=== PATIENT | female | born 1945 | race Caucasian/White ===

== ENCOUNTER 2021-02-14 16:04 | Inpatient (IN) ==
[2021-02-14] MEDS ORDERED: Metoprolol Tartrate 5 mg VIAL 5 ml VIAL (1 mg/ml) IV ONE ×2 (16:46→18:09)
[2021-02-14] MEDS ORDERED: Magnesium Sulfate IV 1GM/100ML 1 GM/100 ML BAG IV ONE (16:47)
[2021-02-14 17:57] LABS: ABS Lymphocytes 0.3 10^3/ul (1.0-4.8); ABS Monocytes 0.9 10^3/ul (0-0.8); ABS Neutrophils 15.3 10^3/ul (1.5-7.7); ABS Nucleated RBC 0.1 10^3/ul; Hematocrit 44 % (35-47); Hemoglobin 13.8 g/dL (12.0-16.0); Lymphocyte % 1.9 %; Mean Corpuscular HGB Conc 31 g/dL (31-36); Mean Corpuscular Hemoglobin 30 pg (27-31); Mean Corpuscular Volume 95 fL (80-97); Mean Platelet Volume 7.9 fL (7.4-10.4); Nucleated Red Blood Cells % 0.8; Platelet Count 308 10^3/uL (150-450); Red Cell Distribution Width 23 % (10-15); White Blood Count 16.5 10^3/uL (3.5-10.8)
[2021-02-14 18:15] LABS: ALT 15 U/L (7-52); AST 22 U/L (13-39); Alkaline Phosphatase 166 U/L (35-149); Blood Urea Nitrogen 61 mg/dL (6-24); CO2 Carbon Dioxide 31 mmol/L (22-32); Calcium 9.2 mg/dL (8.6-10.3); Globulin 2.9 g/dL (2-4); Glucose 105 mg/dL (70-100); Magnesium 2.6 mg/dL (1.9-2.7); Potassium 3.1 mmol/L (3.5-5.0); Total Protein 5.9 g/dL (6.4-8.9); eGFR CKD-EPI 30.8 (>60)
[2021-02-14 18:18] LABS: Chloride 117 mmol/L (101-111)
[2021-02-14 18:19] LABS: Troponin I 0.07 ng/mL (<0.03)
[2021-02-14 18:20] LABS: Anion Gap 10 mmol/L (2-11); Sodium 158 mmol/L (135-145)
[2021-02-14] MEDS: KCL 10 MEQ/50 ML IVPREMIX 10 MEQ/50 ML BAG IV SCH ×4 (18:56→22:59)
[2021-02-14] MEDS ORDERED: D5W 1/2 NS 1000 ml BAG 1,000 ML IV SCH ×2 (20:00)
[2021-02-14] MEDS: Magnesium Hydroxide LIQ 30 ML UDC PO SCH (21:32)
[2021-02-14] MEDS ORDERED: Piperacillin/Tazobac ADVAN 3.375 GM in NS 0.9% 100 ml BAG 100 ML IV ONE (21:35)
[2021-02-14] MEDS ORDERED: Dextrose 50% Syringe 50 ml 25 GM/50 ML SYRINGE IV PUSH PRN (21:50)
[2021-02-14 21:52] LABS: Troponin I 0.07 ng/mL (<0.03)
[2021-02-14] MEDS ORDERED: Zosyn per Pharmacy NOTE FOLLOW UP SCH (22:00)
[2021-02-14 22:08] LABS: C Reactive Protein 105.33 mg/L (<8.01)
[2021-02-15 01:19] LABS: Hepatitis B Surface Antigen Nonreactive (Nonreactive)
[2021-02-15 01:24] LABS: Hepatitis A Ab IgM Negative (Negative)
[2021-02-15 01:25] LABS: Hepatitis B Core IgM Nonreactive (Nonreactive)
[2021-02-15 01:36] LABS: Hepatitis C Antibody Negative (Negative)
[2021-02-15] MEDS: Collagenase 250 units/gm OINT 1 tube TOPICAL SCH ×2 (02:15→08:58)
[2021-02-15] MEDS: Metoprolol Tartrate 5 mg VIAL 5 ml VIAL (1 mg/ml) IV PRN ×2 (02:59→11:32)
[2021-02-15 06:20] LABS: Sodium 159 mmol/L (135-145)
[2021-02-15 06:42] LABS: Hematocrit 48 % (35-47); Hemoglobin 14.6 g/dL (12.0-16.0); Mean Corpuscular HGB Conc 30 g/dL (31-36); Mean Corpuscular Hemoglobin 30 pg (27-31); Mean Corpuscular Volume 100 fL (80-97); Mean Platelet Volume 8.1 fL (7.4-10.4); Platelet Count 313 10^3/uL (150-450); Red Blood Count 4.86 10^6 /uL (3.70-4.87); Red Cell Distribution Width 24 % (10-15); White Blood Count 16.2 10^3/uL (3.5-10.8)
[2021-02-15 06:52] LABS: Calcium 9.2 mg/dL (8.6-10.3); Potassium 3.6 mmol/L (3.5-5.0); eGFR CKD-EPI 30.2 (>60)
[2021-02-15 06:57] LABS: Blood Urea Nitrogen 60 mg/dL (6-24); CO2 Carbon Dioxide 28 mmol/L (22-32); Calcium 9.2 mg/dL (8.6-10.3); Glucose 99 mg/dL (70-100); Magnesium 3.3 mg/dL (1.9-2.7); Potassium 3.7 mmol/L (3.5-5.0); eGFR CKD-EPI 30.4 (>60)
[2021-02-15 07:03] LABS: Troponin I 0.07 ng/mL (<0.03)
[2021-02-15 07:14] LABS: Anion Gap 12 mmol/L (2-11); Chloride 119 mmol/L (101-111); Sodium 159 mmol/L (135-145)
[2021-02-15] MEDS ORDERED: D5W 1/2 NS 1000 ml BAG 1,000 ML IV SCH ×2 (08:00→21:45)
[2021-02-15] MEDS: Magnesium Hydroxide LIQ 30 ML UDC PO SCH ×2 (08:58→22:56)
[2021-02-15] MEDS ORDERED: Collagenase 250 units/gm OINT 1 tube TOPICAL SCH (09:00)
[2021-02-15] MEDS ORDERED: Perflutren Lipid Microsphere 3 ML VIAL ONE (11:21)
[2021-02-15] MEDS ORDERED: Buffered Lidocaine 1% SYRIN 1 ml INTRADERM ONE (13:17)
[2021-02-15] MEDS ORDERED: Vancomycin per Pharmacy 1 EA NOTE FOLLOW UP PRN (13:20)
[2021-02-15] MEDS ORDERED: Vancomycin 1,250 MG in NS 0.9% 250 ml 250 ML IVPB ONE (14:00)
[2021-02-15] MEDS ORDERED: Ketamine HCL 50 mg/ml 10 ml VIAL (500 MG) ONE (17:54)
[2021-02-15] MEDS ORDERED: Propofol 10 MG/ML 20 ML BTL ONE (17:54)
[2021-02-15 20:54] LABS: Calcium 8.9 mg/dL (8.6-10.3); Potassium 3.7 mmol/L (3.5-5.0); eGFR CKD-EPI 31.7 (>60)
[2021-02-15] MEDS ORDERED: Potassium Chlor 20 meq TAB.ER PO ONE (22:34)
[2021-02-16 05:36] LABS: Urine Appearance Clear; Urine Color Yellow; Urine Specific Gravity 1.013 (1.002-1.030)
[2021-02-16 05:37] LABS: * N (Negative); Urine Bilirubin Negative (Negative); Urine Blood 2+ (Negative); Urine Glucose 3+(>=500 mg/dL) (Negative); Urine Ketones Negative (Negative); Urine Nitrite N (Negative); Urine Protein N (Negative); Urine Urobilinogen N (Negative)
[2021-02-16 05:48] LABS: Calcium 7.9 mg/dL (8.6-10.3); Magnesium 2.9 mg/dL (1.9-2.7); Potassium 3.4 mmol/L (3.5-5.0)
[2021-02-16 05:49] LABS: ABS Lymphocytes 0.4 10^3/ul (1.0-4.8); ABS Monocytes 0.7 10^3/ul (0-0.8); ABS Neutrophils 14.3 10^3/ul (1.5-7.7); Eosinophil % 0.1 %; Hematocrit 41 % (35-47); Hemoglobin 12.4 g/dL (12.0-16.0); Lymphocyte % 2.7 %; Mean Corpuscular HGB Conc 30 g/dL (31-36); Mean Corpuscular Hemoglobin 30 pg (27-31); Mean Corpuscular Volume 100 fL (80-97); Mean Platelet Volume 8.4 fL (7.4-10.4); Nucleated Red Blood Cells % 0.2; Platelet Count 243 10^3/uL (150-450); Red Blood Count 4.09 10^6 /uL (3.70-4.87); Red Cell Distribution Width 24 % (10-15); White Blood Count 15.4 10^3/uL (3.5-10.8)
[2021-02-16 05:54] LABS: C Reactive Protein 137.29 mg/L (<8.01); eGFR CKD-EPI 37.2 (>60)
[2021-02-16 06:05] LABS: Urine Bacteria Absent (Absent); Urine Red Blood Cell Trace(0-2/hpf) (Absent); Urine Squamous Epithelial Cell Present (Absent); Urine White Blood Cell Trace(0-5/hpf) (Absent)
[2021-02-16] MEDS ORDERED: Vancomycin Random Level NOTE FOLLOW UP ONE (08:00)
[2021-02-16] MEDS ORDERED: Potassium Chlor 20 meq TAB.ER PO ONE (08:00)
[2021-02-16] MEDS: D5W 1000 ml BAG 1,000 ML IV SCH ×2 (08:35→21:13)
[2021-02-16] MEDS: Magnesium Hydroxide LIQ 30 ML UDC PO SCH ×2 (08:42→21:00)
[2021-02-16 09:23] LABS: Calcium 8.7 mg/dL (8.6-10.3); Potassium 3.6 mmol/L (3.5-5.0); eGFR CKD-EPI 36.6 (>60)
[2021-02-16] MEDS: Vancomycin 1000 MG in NS 0.9% 250 ML IVPB SCH ×2 (11:40→23:31)
[2021-02-16] MEDS: Collagenase 250 units/gm OINT 1 tube TOPICAL SCH (12:35)
[2021-02-16 14:09] LABS: Calcium 8.6 mg/dL (8.6-10.3); eGFR CKD-EPI 37.2 (>60)
[2021-02-16] MEDS ORDERED: Lorazepam PYXIS KEY PRN (16:14)
[2021-02-16] MEDS ORDERED: LORazepam 2 mg VIAL 1 ml IV PUSH ONE (16:14)
[2021-02-16 18:00] LABS: Osmolality Serum 338 mOsm/kg (275-295)
[2021-02-16 18:29] LABS: Calcium 8.2 mg/dL (8.6-10.3); Potassium 4.2 mmol/L (3.5-5.0); eGFR CKD-EPI 36.6 (>60)
[2021-02-16 18:38] LABS: Complement C3 100 mg/dL (75 - 175)
[2021-02-16 22:16] LABS: Calcium 8.2 mg/dL (8.6-10.3); Potassium 4.1 mmol/L (3.5-5.0); eGFR CKD-EPI 37.5 (>60)
[2021-02-17 01:12] LABS: Blood Urea Nitrogen 41 mg/dL (6-24); CO2 Carbon Dioxide 30 mmol/L (22-32); Glucose 67 mg/dL (70-100); Potassium 3.9 mmol/L (3.5-5.0); eGFR CKD-EPI 39.1 (>60)
[2021-02-17 01:16] LABS: Anion Gap 4 mmol/L (2-11); Chloride 119 mmol/L (101-111); Sodium 153 mmol/L (135-145)
[2021-02-17 05:08] LABS: Calcium 7.9 mg/dL (8.6-10.3); Potassium 3.7 mmol/L (3.5-5.0); eGFR CKD-EPI 38.2 (>60)
[2021-02-17] MEDS: Magnesium Hydroxide LIQ 30 ML UDC PO SCH ×2 (08:42→20:46)
[2021-02-17] MEDS ORDERED: Buffered Lidocaine 1% SYRIN 1 ml INTRADERM ONE (11:15)
[2021-02-17] MEDS: Collagenase 250 units/gm OINT 1 tube TOPICAL SCH (12:15)
[2021-02-17 13:15] LABS: Cryoglobulin Negative %ppt (Negative)
[2021-02-17] MEDS: Vancomycin 1000 MG in NS 0.9% 250 ML IVPB SCH ×2 (14:45→22:39)
[2021-02-18 06:12] LABS: ABS Eosinophils 0.1 10^3/ul (0-0.6); ABS Lymphocytes 0.5 10^3/ul (1.0-4.8); ABS Monocytes 0.5 10^3/ul (0-0.8); ABS Neutrophils 5.4 10^3/ul (1.5-7.7); Eosinophil % 0.9 %; Hematocrit 36 % (35-47); Lymphocyte % 7.2 %; Mean Corpuscular HGB Conc 31 g/dL (31-36); Mean Corpuscular Hemoglobin 30 pg (27-31); Mean Corpuscular Volume 97 fL (80-97); Mean Platelet Volume 8.9 fL (7.4-10.4); Nucleated Red Blood Cells % 0.3; Platelet Count 235 10^3/uL (150-450); Red Blood Count 3.66 10^6 /uL (3.70-4.87); Red Cell Distribution Width 22 % (10-15); White Blood Count 6.4 10^3/uL (3.5-10.8)
[2021-02-18 06:31] LABS: C Reactive Protein 90.05 mg/L (<8.01); Calcium 7.9 mg/dL (8.6-10.3); Potassium 3.9 mmol/L (3.5-5.0); eGFR CKD-EPI 34.9 (>60)
[2021-02-18] MEDS: Magnesium Hydroxide LIQ 30 ML UDC PO SCH ×2 (08:56→20:58)
[2021-02-18] MEDS: Collagenase 250 units/gm OINT 1 tube TOPICAL SCH (08:57)
[2021-02-18] MEDS ORDERED: Vancomycin Trough Check NOTE FOLLOW UP ONE (10:30)
[2021-02-18] MEDS: Vancomycin 1000 MG in NS 0.9% 250 ML IVPB SCH (12:29)
[2021-02-18] MEDS: D5W 1000 ml BAG 1,000 ML IV SCH (20:57)
[2021-02-18] MEDS: Vancomycin 1,250 MG in NS 0.9% 250 ml 250 ML IVPB SCH (22:04)
[2021-02-19] MEDS: D5W 1000 ml BAG 1,000 ML IV SCH (05:08)
[2021-02-19 05:58] LABS: ABS Eosinophils 0.1 10^3/ul (0-0.6); ABS Lymphocytes 0.5 10^3/ul (1.0-4.8); ABS Monocytes 0.5 10^3/ul (0-0.8); ABS Neutrophils 5.5 10^3/ul (1.5-7.7); Eosinophil % 1.2 %; Hematocrit 35 % (35-47); Hemoglobin 10.8 g/dL (12.0-16.0); Lymphocyte % 7.6 %; Mean Corpuscular HGB Conc 31 g/dL (31-36); Mean Corpuscular Hemoglobin 30 pg (27-31); Mean Corpuscular Volume 96 fL (80-97); Mean Platelet Volume 8.9 fL (7.4-10.4); Nucleated Red Blood Cells % 0.2; Platelet Count 254 10^3/uL (150-450); Red Blood Count 3.67 10^6 /uL (3.70-4.87); Red Cell Distribution Width 22 % (10-15); White Blood Count 6.6 10^3/uL (3.5-10.8)
[2021-02-19 06:19] LABS: Albumin 2.4 g/dL (3.2-5.2); Calcium 7.6 mg/dL (8.6-10.3); Globulin 2.5 g/dL (2-4); Potassium 3.9 mmol/L (3.5-5.0); Total Bilirubin 0.7 mg/dL (0.2-1.0); Total Protein 4.9 g/dL (6.4-8.9); eGFR CKD-EPI 28.3 (>60)
[2021-02-19] MEDS ORDERED: Morphine 2 MG/ML SYRINGE IV PRN (06:32)
[2021-02-19] MEDS: Collagenase 250 units/gm OINT 1 tube TOPICAL SCH (09:07)
[2021-02-19] MEDS: Magnesium Hydroxide LIQ 30 ML UDC PO SCH ×2 (09:07→20:36)
[2021-02-19] MEDS ORDERED: NS 0.9% 1000 ml BAG 500 ML IV ONE (19:45)
[2021-02-19] MEDS: Vancomycin 1,250 MG in NS 0.9% 250 ml 250 ML IVPB SCH (21:57)
[2021-02-20 07:19] LABS: ABS Lymphocytes 0.6 10^3/ul (1.0-4.8); ABS Monocytes 0.6 10^3/ul (0-0.8); ABS Neutrophils 5.4 10^3/ul (1.5-7.7); Eosinophil % 0.7 %; Hematocrit 36 % (35-47); Hemoglobin 11.4 g/dL (12.0-16.0); Lymphocyte % 9.3 %; Mean Corpuscular HGB Conc 31 g/dL (31-36); Mean Corpuscular Hemoglobin 30 pg (27-31); Mean Corpuscular Volume 96 fL (80-97); Mean Platelet Volume 8.8 fL (7.4-10.4); Platelet Count 249 10^3/uL (150-450); Red Blood Count 3.77 10^6 /uL (3.70-4.87); Red Cell Distribution Width 21 % (10-15); White Blood Count 6.6 10^3/uL (3.5-10.8)
[2021-02-20 07:36] LABS: Calcium 7.6 mg/dL (8.6-10.3); Potassium 4.8 mmol/L (3.5-5.0); eGFR CKD-EPI 24.1 (>60)
[2021-02-20] MEDS: Collagenase 250 units/gm OINT 1 tube TOPICAL SCH (07:58)
[2021-02-20] MEDS: Magnesium Hydroxide LIQ 30 ML UDC PO SCH ×3 (08:00→20:47)
[2021-02-20] MEDS ORDERED: NS 0.9% 500 ml BAG 500 ML IV ONE (08:53)
[2021-02-20] MEDS: Calcium Carb (TUMS) 500 mg CHEW TAB PO PRN (20:45)
[2021-02-21] MEDS: Calcium Carb (TUMS) 500 mg CHEW TAB PO PRN ×2 (04:53→20:52)
[2021-02-21 05:58] LABS: ABS Lymphocytes 0.7 10^3/ul (1.0-4.8); ABS Monocytes 0.5 10^3/ul (0-0.8); ABS Neutrophils 5.6 10^3/ul (1.5-7.7); Eosinophil % 0.3 %; Hematocrit 36 % (35-47); Hemoglobin 11.1 g/dL (12.0-16.0); Lymphocyte % 10.7 %; Mean Corpuscular HGB Conc 31 g/dL (31-36); Mean Corpuscular Hemoglobin 30 pg (27-31); Mean Corpuscular Volume 96 fL (80-97); Mean Platelet Volume 9.4 fL (7.4-10.4); Nucleated Red Blood Cells % 0.4; Platelet Count 263 10^3/uL (150-450); Red Blood Count 3.71 10^6 /uL (3.70-4.87); Red Cell Distribution Width 22 % (10-15)
[2021-02-21] MEDS ORDERED: Vancomycin Trough Check NOTE FOLLOW UP ONE (06:00)
[2021-02-21] MEDS ORDERED: Vancomycin Random Level NOTE FOLLOW UP ONE (06:00)
[2021-02-21 06:03] LABS: Calcium 7.8 mg/dL (8.6-10.3); Potassium 4.9 mmol/L (3.5-5.0)
[2021-02-21 06:08] LABS: Vancomycin Random 32.7 mcg/mL
[2021-02-21 07:55] LABS: Magnesium 2.6 mg/dL (1.9-2.7)
[2021-02-21] MEDS: Magnesium Hydroxide LIQ 30 ML UDC PO SCH ×2 (09:14→20:53)
[2021-02-21] MEDS: Collagenase 250 units/gm OINT 1 tube TOPICAL SCH (09:14)
[2021-02-22 05:25] LABS: ABS Basophils 0.1 10^3/ul (0-0.2); ABS Lymphocytes 0.8 10^3/ul (1.0-4.8); ABS Monocytes 0.6 10^3/ul (0-0.8); ABS Neutrophils 4.6 10^3/ul (1.5-7.7); ABS Nucleated RBC 0.1 10^3/ul; Eosinophil % 0.5 %; Hematocrit 34 % (35-47); Hemoglobin 10.7 g/dL (12.0-16.0); Lymphocyte % 13.4 %; Mean Corpuscular HGB Conc 31 g/dL (31-36); Mean Corpuscular Hemoglobin 30 pg (27-31); Mean Corpuscular Volume 96 fL (80-97); Platelet Count 271 10^3/uL (150-450); Red Blood Count 3.55 10^6 /uL (3.70-4.87); Red Cell Distribution Width 21 % (10-15); White Blood Count 6.2 10^3/uL (3.5-10.8)
[2021-02-22 05:41] LABS: Albumin 2.5 g/dL (3.2-5.2); Calcium 7.9 mg/dL (8.6-10.3); Globulin 2.5 g/dL (2-4); Total Bilirubin 0.8 mg/dL (0.2-1.0); eGFR CKD-EPI 19.7 (>60)
[2021-02-22 05:49] LABS: Vancomycin Random 28.1 mcg/mL
[2021-02-22] MEDS ORDERED: Vancomycin Random Level NOTE FOLLOW UP ONE (06:00)
[2021-02-22] MEDS ORDERED: Saline NASAL DROPS 0.65% BTL BOTH NARES PRN (08:33)
[2021-02-22] MEDS: Magnesium Hydroxide LIQ 30 ML UDC PO SCH ×2 (10:53→23:03)
[2021-02-22] MEDS: Collagenase 250 units/gm OINT 1 tube TOPICAL SCH (10:55)
[2021-02-22 12:02] LABS: Urine Creatinine Concentration 108.81 mg/dL; Urine Sodium Concentration < 18 mmol/L
[2021-02-22] MEDS ORDERED: Bumetanide IV 0.25 MG/ML 4 ml VIAL (1 mg) SLOW PUSH ONE (13:49)
[2021-02-22] MEDS: Bumetanide IV 0.25 MG/ML 4 ml VIAL (1 mg) SLOW PUSH SCH (22:58)
[2021-02-23 05:08] LABS: ABS Basophils 0.1 10^3/ul (0-0.2); ABS Eosinophils 0.1 10^3/ul (0-0.6); ABS Lymphocytes 0.6 10^3/ul (1.0-4.8); ABS Monocytes 0.6 10^3/ul (0-0.8); ABS Neutrophils 5.2 10^3/ul (1.5-7.7); ABS Nucleated RBC 0.1 10^3/ul; Eosinophil % 0.8 %; Hematocrit 32 % (35-47); Hemoglobin 10.2 g/dL (12.0-16.0); Lymphocyte % 9.7 %; Mean Corpuscular HGB Conc 32 g/dL (31-36); Mean Corpuscular Hemoglobin 30 pg (27-31); Mean Corpuscular Volume 95 fL (80-97); Mean Platelet Volume 8.7 fL (7.4-10.4); Nucleated Red Blood Cells % 1.3; Platelet Count 274 10^3/uL (150-450); Red Blood Count 3.41 10^6 /uL (3.70-4.87); Red Cell Distribution Width 21 % (10-15); White Blood Count 6.6 10^3/uL (3.5-10.8)
[2021-02-23 05:30] LABS: Magnesium 2.4 mg/dL (1.9-2.7); Potassium 4.3 mmol/L (3.5-5.0)
[2021-02-23] MEDS ORDERED: Vancomycin Random Level NOTE FOLLOW UP ONE (06:00)
[2021-02-23] MEDS: Magnesium Hydroxide LIQ 30 ML UDC PO SCH ×3 (10:13→22:55)
[2021-02-23] MEDS: Collagenase 250 units/gm OINT 1 tube TOPICAL SCH (10:14)
[2021-02-23] MEDS: Bumetanide IV 0.25 MG/ML 4 ml VIAL (1 mg) SLOW PUSH SCH (10:14)
[2021-02-23 18:35] LABS: Rapid COVID-19 Molecular Undetected (Undetected)
[2021-02-24 05:28] LABS: ABS Basophils 0.1 10^3/ul (0-0.2); ABS Eosinophils 0.1 10^3/ul (0-0.6); ABS Lymphocytes 0.5 10^3/ul (1.0-4.8); ABS Monocytes 0.6 10^3/ul (0-0.8); Hematocrit 33 % (35-47); Hemoglobin 10.5 g/dL (12.0-16.0); Lymphocyte % 8.6 %; Mean Corpuscular HGB Conc 32 g/dL (31-36); Mean Corpuscular Hemoglobin 30 pg (27-31); Mean Corpuscular Volume 95 fL (80-97); Mean Platelet Volume 8.6 fL (7.4-10.4); Nucleated Red Blood Cells % 0.7; Platelet Count 280 10^3/uL (150-450); Red Blood Count 3.49 10^6 /uL (3.70-4.87); Red Cell Distribution Width 22 % (10-15); White Blood Count 6.2 10^3/uL (3.5-10.8)
[2021-02-24 05:47] LABS: Albumin 2.5 g/dL (3.2-5.2); Globulin 2.6 g/dL (2-4); Magnesium 2.1 mg/dL (1.9-2.7); Potassium 4.2 mmol/L (3.5-5.0); Total Bilirubin 0.8 mg/dL (0.2-1.0); Total Protein 5.1 g/dL (6.4-8.9); eGFR CKD-EPI 18.8 (>60)
[2021-02-24] MEDS: Collagenase 250 units/gm OINT 1 tube TOPICAL SCH (09:09)
[2021-02-24] MEDS: Magnesium Hydroxide LIQ 30 ML UDC PO SCH ×2 (09:09→20:59)
[2021-02-25] MEDS: Magnesium Hydroxide LIQ 30 ML UDC PO SCH ×2 (08:22→21:11)
[2021-02-25] MEDS: Collagenase 250 units/gm OINT 1 tube TOPICAL SCH (08:22)
[2021-02-25 16:05] LABS: Calcium 7.9 mg/dL (8.6-10.3); Magnesium 2.2 mg/dL (1.9-2.7); Potassium 4.3 mmol/L (3.5-5.0); eGFR CKD-EPI 18.5 (>60)
[2021-02-26 05:50] LABS: ABS Basophils 0.1 10^3/ul (0-0.2); ABS Eosinophils 0.2 10^3/ul (0-0.6); ABS Lymphocytes 0.6 10^3/ul (1.0-4.8); ABS Monocytes 0.5 10^3/ul (0-0.8); ABS Neutrophils 4.7 10^3/ul (1.5-7.7); Eosinophil % 2.9 %; Hematocrit 32 % (35-47); Hemoglobin 10.2 g/dL (12.0-16.0); Lymphocyte % 10.3 %; Mean Corpuscular HGB Conc 32 g/dL (31-36); Mean Corpuscular Hemoglobin 30 pg (27-31); Mean Corpuscular Volume 95 fL (80-97); Mean Platelet Volume 8.5 fL (7.4-10.4); Nucleated Red Blood Cells % 0.7; Platelet Count 281 10^3/uL (150-450); Red Blood Count 3.41 10^6 /uL (3.70-4.87); Red Cell Distribution Width 21 % (10-15); White Blood Count 6.1 10^3/uL (3.5-10.8)
[2021-02-26 06:05] LABS: Calcium 7.8 mg/dL (8.6-10.3); Magnesium 2.2 mg/dL (1.9-2.7); Potassium 4.4 mmol/L (3.5-5.0); eGFR CKD-EPI 20.5 (>60)
[2021-02-26] MEDS: Magnesium Hydroxide LIQ 30 ML UDC PO SCH ×2 (09:32→21:29)
[2021-02-26] MEDS: Linezolid 600 MG IVPREMIX(*) 600 MG/300 ML BAG IVPB SCH ×2 (09:33→21:29)
[2021-02-26] MEDS: Collagenase 250 units/gm OINT 1 tube TOPICAL SCH (13:00)
[2021-02-27] MEDS ORDERED: Linezolid 600 MG IVPREMIX(*) 600 MG/300 ML BAG IVPB SCH (07:00)
[2021-02-27] MEDS: Linezolid 600 MG IVPREMIX(*) 600 MG/300 ML BAG IVPB SCH ×2 (10:39→17:56)
[2021-02-27] MEDS: Magnesium Hydroxide LIQ 30 ML UDC PO SCH ×3 (11:07→20:16)
[2021-02-27] MEDS: Collagenase 250 units/gm OINT 1 tube TOPICAL SCH (18:16)
[2021-02-28 07:37] LABS: ABS Basophils 0.1 10^3/ul (0-0.2); ABS Eosinophils 0.1 10^3/ul (0-0.6); ABS Lymphocytes 0.7 10^3/ul (1.0-4.8); ABS Monocytes 0.6 10^3/ul (0-0.8); ABS Neutrophils 5.8 10^3/ul (1.5-7.7); Eosinophil % 1.7 %; Hematocrit 32 % (35-47); Hemoglobin 10.4 g/dL (12.0-16.0); Lymphocyte % 9.8 %; Mean Corpuscular HGB Conc 32 g/dL (31-36); Mean Corpuscular Hemoglobin 31 pg (27-31); Mean Corpuscular Volume 95 fL (80-97); Mean Platelet Volume 7.7 fL (7.4-10.4); Nucleated Red Blood Cells % 0.2; Platelet Count 264 10^3/uL (150-450); Red Blood Count 3.42 10^6 /uL (3.70-4.87); Red Cell Distribution Width 21 % (10-15); White Blood Count 7.2 10^3/uL (3.5-10.8)
[2021-02-28 07:57] LABS: Calcium 7.8 mg/dL (8.6-10.3); Potassium 4.4 mmol/L (3.5-5.0)
[2021-02-28] MEDS ORDERED: Buffered Lidocaine 1% SYRIN 1 ml INTRADERM ONE (09:13)
[2021-02-28] MEDS: Magnesium Hydroxide LIQ 30 ML UDC PO SCH ×2 (09:20→20:57)
[2021-02-28] MEDS: Linezolid 600 MG IVPREMIX(*) 600 MG/300 ML BAG IVPB SCH ×2 (10:30→19:30)
[2021-02-28] MEDS: Collagenase 250 units/gm OINT 1 tube TOPICAL SCH (15:26)
[2021-03-01 06:56] LABS: Calcium 7.8 mg/dL (8.6-10.3); Potassium 4.2 mmol/L (3.5-5.0); eGFR CKD-EPI 21.2 (>60)
[2021-03-01] MEDS: Magnesium Hydroxide LIQ 30 ML UDC PO SCH ×2 (08:42→21:41)
[2021-03-01] MEDS: Linezolid 600 MG IVPREMIX(*) 600 MG/300 ML BAG IVPB SCH ×2 (08:47→21:33)
[2021-03-01] MEDS: Collagenase 250 units/gm OINT 1 tube TOPICAL SCH (08:47)
[2021-03-02] MEDS ORDERED: Lactated Ringers 500 ml BAG 500 ML IV ONE (00:53)
[2021-03-02] MEDS: Magnesium Hydroxide LIQ 30 ML UDC PO SCH (09:09)
[2021-03-02] MEDS: Linezolid 600 MG IVPREMIX(*) 600 MG/300 ML BAG IVPB SCH (09:09)
[2021-03-02 10:51] VITALS: BP 91/61
== END 2021-03-02 13:30 | disposition hospice, home (50) | DRG 384 ==
LOC: EDHOLD 16:04 → ED 16:04 → MEDTELE 02-15 01:00 → SUATTDRO 02-15 10:58 → MEDTELE 02-17 18:06
PROVIDERS: ADMIT Internal Medicine; ATTEND Hospitalist